=== PATIENT | male | born 1990 | race Caucasian/White ===

== ENCOUNTER 2022-02-20 08:37 | Emergency (ER) | payer OTHER, SELFPAY ==
[2022-02-20 09:17] VITALS: BP 121/81; PULSE 72; RESP 20; TEMP 36.6; O2SAT 100
--- NOTE | 2022-02-20 09:57 | ED.DENTAL ---
HPI - Dental/Oral General Chief complaint: Dental/Oral Stated complaint: Toothache Time Seen by Provider: 02/20/22 09:57 Source: patient, RN notes reviewed and old records reviewed Mode of arrival: ambulatory Limitations: no limitations History of Present Illness HPI Narrative: 31-year-old male who presents to [facility] with complaints of dental pain to the right lower wisdom tooth with increased symptoms for the past 2 days. Patient reports that he has been waiting to get into dentist at [facility] and was suppose to be seen on the and when he called to check on it they stated that they forgot to put him on schedule. Patient reports that he has been taking Tylenol and Ibuprofen for his symptoms and using [employer] mouth wash, he has also got these temporary dental fix hits which are like temporary filling and placed in all of his remaining wisdom teeth.patient reports that he is afraid to take much ibuprofen due to congenital absence of one kidney. MD Complaint: tooth pain Location: Tooth # (2) Severity scale (1-10): 8 Treatment prior to arrival: oral analgesic and other (mouth wash, temporary dental fix kits) Related Data Allergies Allergy/AdvReac Type Severity Reaction Status Date / Time No Known Allergies Allergy Verified 02/20/22 09:24 Review of Systems Review of Systems: CONSTITUTIONAL: Denies fever, chills, or sweats. ENT: Denies rhinorrhea, congestion, sore throat, or otalgia. Reports dental pain to #32 tooth CARDIOVASCULAR: Denies chest pain, palpitations, or edema. RESPIRATORY: Denies cough or dyspnea. SKIN: Denies rash or itching. MUSCULOSKELETAL: Denies myalgia. NEUROLOGIC: Denies headache All systems reviewed & are unremarkable except as noted in HPI and below PMFSH Past Medical History Medical History Chronic back pain Congenital absence of one kidney Comments At time of signature, agree with nursing past medical, surgical, social and family history. There is no relevant family history pertinent to the presenting complaint Exam Narrative: GENERAL: Well-appearing, well-nourished, and in no acute distress. HEAD: Normocephalic, atraumatic. EYES: PERRLA and EOMI. ENT: Nares clear, no rhinorrhea or epistaxis. Mucous membranes moist. Dental pain #32 tooth with redness and swelling around gum NECK: Supple. no lymphadenopathy CHEST: Clear to auscultation. No respiratory distress.SAO2 100% on room air HEART: Regular rate and rhythm. No murmur heard. Normal peripheral pulses. SKIN: Warm, dry, no rash. NEURO: No focal deficits. Alert and oriented x3. Course Course Emergency Course: Patient is aware of diagnosis, understands and agrees to treatment plan. Anticipatory guidance given. Patient agrees to follow-up as directed and is aware of reasons to seek care at the emergency department. Portions of this record may have been created with voice recognition software Level of Care: Express Care Visit Vital Signs Vital signs: Vital Signs Temperature 36.6 C 02/20/22 09:17 Pulse Rate 72 02/20/22 09:17 Respiratory Rate 20 02/20/22 09:17 Blood Pressure 121/81 02/20/22 09:17 Pulse Oximetry 100 02/20/22 09:17 Oxygen Delivery Room Air 02/20/22 09:17 Temperature 36.6 C 02/20/22 09:17 Pulse Rate 72 02/20/22 09:17 Respiratory Rate 20 02/20/22 09:17 Blood Pressure 121/81 02/20/22 09:17 Pulse Oximetry 100 02/20/22 09:17 Oxygen Delivery Room Air 02/20/22 09:17 Reviewed MDM - Dental/Oral MDM Narrative Medical decision making narrative: Patients pain and complaint coupled with physical findings are consistent with dentalgia. There are no focal signs of space occupying lesions that are compromising to the airway; no dysphagia, odynophagia, dysphonia, or dyspnea. No uvular deviation or soft palate edema. Patient is non-toxic appearing. The floor of the mouth is soft with no signs of Cole's Angina; no induration be
== END 2022-02-20 10:33 | disposition home or self-care (01) ==
PROVIDERS: Emergency Provider Registered Nurse
DX: K04.7 Periapical abscess without sinus (principal); Q60.0 Renal agenesis, unilateral
CPT/HCPCS: 99213; G0463